=== PATIENT | female | born 1975 | race Caucasian/White ===

== ENCOUNTER 2019-05-17 22:42 | Emergency (ER) | payer OTHER ==
[2019-05-17 23:20] LABS: Urine Appearance Clear; Urine Bilirubin Negative (Negative); Urine Blood Negative (Negative); Urine Color Straw; Urine Glucose Negative (Negative); Urine Ketones Negative (Negative); Urine Nitrite Negative (Negative); Urine Protein Negative (Negative); Urine Specific Gravity 1.003 (1.010-1.030); Urine Urobilinogen Negative (Negative)
--- NOTE | 2019-05-18 00:06 | ED ---
GI/ HPI - HPI Summary HPI Summary: This patient is a 43 year old female presenting to [facility] with a chief complaint of back pain. She states she may have a UTI, and states a Hx of UTI. She states she took Tylenol and Ibuprofen for her pain. She states movement aggravates the back pain. She denies fever. She states her pain is at the lower right side of her back. She rates her back pain 8/10 in severity. - History of Current Complaint Chief Complaint: EDAbdPain Time Seen by Provider: 05/17/19 23:58 Stated Complaint: BACK PAIN PER EMS Hx Obtained From: Patient Onset/Duration: Started Hours Ago Pain Intensity: 8 - Allergy/Home Medications Allergies/Adverse Reactions: Allergies Allergy/AdvReac Type Severity Reaction Status Date / Time morphine Allergy Hives Verified 05/17/19 22:51 PMH/Surg Hx/FS Hx/Imm Hx Infectious Disease History: No Infectious Disease History: Denies: Traveled Outside the [place] in Last 30 Days - Social History Alcohol Use: None Substance Use Type: Reports: Other Substance Use Comment - 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 No murmurs. Normal distal pulses in tibial and radial bilaterally. Abdomen: Soft, nontender, normal active bowel sounds present Musculoskeletal: Normal, Strength/ROM Intact. She does not have any impingement in ROM of her spine. There is no palpable muscle spasm or focal tenderness in the back. Neurological: A&Ox3, awake and alert, mentation is normal, speech is fluent and appropriate Psychiatric: affect is normal, does not appear anxious or depressed Triage Information Reviewed: Yes Vital Signs On Initial Exam: Initial Vitals Temp Pulse Resp BP Pulse Ox 98.3 F 97 18 129/73 93 05/17/19 22:48 05/17/19 22:48 05/17/19 22:48 05/17/19 22:48 05/17/19 22:48 Vital Signs Reviewed: Yes Procedures - Sedation Patient Received Moderate/Deep Sedation with Procedure: No Diagnostics - Vital Signs Vital Signs Temp Pulse Resp BP Pulse Ox 05/17/19 22:48 98.3 F 97 18 129/73 93 - Laboratory Lab Results: Lab Results 05/17/19 Range/Units 23:00 Urine Color Straw Urine Appearance Clear Urine pH 5.0 (5-9) Ur Specific [place] 1.003 L (1.010-1.030) Urine Protein Negative (Negative) Urine Ketones Negative (Negative) Urine Blood Negative (Negative) Urine Nitrate Negative (Negative) Urine Bilirubin Negative (Negative) Urine Urobilinogen Negative (Negative) Ur Leukocyte Esterase Negative (Negative) Urine Glucose Negative (Negative) Lab Statement: Any lab studies that have been ordered have been reviewed, and results considered in the medical decision making process. GIGU Course/Dx - Course Course Of Treatment: This patient is a 43 year old female presenting to [facility] with a chief complaint of back pain. Her urinalysis was unremarkable for UTI. Plan for discharge was discussed with the patient and she was agreeable with this plan. - Diagnoses Provider Diagnoses: Back pain Discharge ED - Sign-Out/Discharge Documenting (check all that apply): Patient Departure - Discharge Plan Condition: Good Disposition: HOME Patient Education Materials: Back Pain (ED) Referrals: Care [facility] [Outside] - 2 Weeks (if not improving) No Primary Care Phys,NOPCP [Primary Care Provider] - Additional Instructions: The urinalysis we did tonight was normal, so it doesn't look like the pain is coming from a UTI or kidney infection. It is likely a musculoskeletal pain coming from the back itself. - Billing Disposition and Condition Condition: GOOD Disposition: Home - Attestation Statements Document Initiated by Scott: Yes Documenting Scribe: Darius Cao Provider For Whom Scott is Documenting (Include Credential): Boo Pablo MD Scribe Attestation: Darisu Rand, noahed for Boo Pablo MD on 05/19/19 at 1950. Scribe Documentation Reviewed: Yes Provider Attestation: The documentation as recorded by the Darius myers accurately reflects the service I personally performed and the decisions made by me, Boo Pablo MD Status of Scribe Document: Viewed
[2019-05-18 00:31] VITALS: BP 113/71
== END 2019-05-18 00:31 | disposition home or self-care (01) ==
LOC: ED 22:42
DX: M54.5 Low back pain (principal); Z87.440 Personal history of urinary (tract) infections; Z88.5 Allergy status to narcotic agent
CPT/HCPCS: 81003; 99282